=== PATIENT | male | born 1940 | race Caucasian/White ===

== ENCOUNTER 2017-11-01 11:57 | Emergency (ER) | payer BC ==
[~2017-11-01] VITALS: Ht 177.8 cm; Wt 90.7 kg
[~2017-11-01 11:57] MED LIST: CELE100C PO; GABA-529 PO; METH750T3 PO; OXYC10TA71 PO; OXYC5TAB84 PO
[2017-11-01 12:38] VITALS: BP_SYST 141
--- NOTE | 2017-11-01 16:10 | NUR ---
Patient to ER triage for evaluation. Side rails up. Assumed care.
--- NOTE | 2017-11-01 16:12 | NUR ---
Pt presents to ED for desouza cath removal
--- NOTE | 2017-11-01 16:15 | NUR ---
ER at bedside examining patient.
--- NOTE | 2017-11-01 16:20 | NUR ---
House cath removed intact
[2017-11-01 16:36] VITALS: BP_SYST 141
--- NOTE | 2017-11-01 16:36 | NUR ---
Patient given written and verbal discharge instructions and verbalizes understanding. ER MD discussed with patient the results and treatment provided. Patient in stable condition. ID arm band removed. no Rx given. Patient educated on pain management and to follow up with PMD. Pain Scale 0 Opportunity for questions provided and answered.
== END 2017-11-01 16:36 | disposition home or self-care (01) ==
LOC: SED 11:57
DX: Z46.6 Encounter for fitting and adjustment of urinary device (principal); I10 Essential (primary) hypertension
CPT/HCPCS: 99283